=== PATIENT | male | born 1980 | race Two or more races ===

== ENCOUNTER 2023-09-02 08:06 | Outpatient (CLI) | payer OTHER ==
[~2023-09-02 08:06] MED LIST: LEVSIN0.125 MG PO; ZANTAC300 MG PO; ZOFRAN4 MG PO
== END 2023-09-02 08:07 | disposition home or self-care (01) ==
LOC: NUCLEAR 08:06
DX: D12.6 Benign neoplasm of colon, unspecified (principal)

== ENCOUNTER 2024-05-01 06:37 | Day surgery (SDC) | payer OTHER ==
[2024-05-01] MEDS ORDERED: fentaNYL CITRATE 50 MCG/ML AMPUL IV PUSH ONE (08:30)
[2024-05-01] MEDS ORDERED: MIDAZOLAM HCL 2 MG/2 ML VIAL IV ONE (08:30)
[2024-05-01] MEDS ORDERED: DIPHENHYDRAMINE HCL 50 MG/ML VIAL 1ML IV ONE (08:30)
== END 2024-05-01 10:15 | disposition home or self-care (01) ==
LOC: AMB-ENDOS 06:37 → CIR.AMB 13:45
PROVIDERS: ATTEND Colon & Rectal Surgery
DX: R19.5 Other fecal abnormalities (principal); R19.4 Change in bowel habit; K63.89 Other specified diseases of intestine; Z86.010 Personal history of colon polyps

== ENCOUNTER 2025-03-01 07:40 | Outpatient (CLI) | payer OTHER | END 2025-03-01 07:42 | disposition home or self-care (01) | LOC: TOM 07:40 | PROVIDERS: ATTEND Internal Medicine Hematology & Oncology | DX: C18.7 Malignant neoplasm of sigmoid colon (principal); R11.2 Nausea with vomiting, unspecified ==